=== PATIENT | male | born 1970 | race Hispanic/Latino ===

== ENCOUNTER → 2024-05-11 | Day surgery (SDC) | payer OTHER ==
[2024-05-10 10:15] LABS: BASOPHILS % 0.9 % (0.0-1.0); EOSINOPHILS # (AUTO) 0.2 (0.0-0.4); EOSINOPHILS % 5.4 % (0.0-6.0); HEMATOCRIT 37.7 % (38.2-49.6); HEMOGLOBIN 12.7 g/dL (14.0-18.0); LYMPHOCYTES # (AUTO) 1.1 (1.0-3.2); LYMPHOCYTES % 30.5 % (18.0-39.1); MEAN CORPUSCULAR HEMOGLOBIN 35.3 pg (28-32); MEAN CORPUSCULAR HGB CONC 33.7 g/dL (31-35); MEAN CORPUSCULAR VOLUME 104.7 fL (81-99); MONOCYTES # (AUTO) 0.3 (0.2-0.8); MONOCYTES % 9.1 % (4.4-11.3); NEUTROPHILS # (AUTO) 1.9 (2.1-6.9); NEUTROPHILS % 53.8 % (38.7-80.0); PLATELET COUNT 75 x10e3/uL (140-360); RED CELL DISTRIBUTION WIDTH 14.6 % (11.7-14.4); WHITE BLOOD COUNT 3.51 x10e3/uL (4.8-10.8)
[2024-05-10 10:37] LABS: ALBUMIN 2.4 g/dL (3.5-5.0); ALBUMIN/GLOBULIN RATIO 0.6 (0.8-2.0); ANION GAP 9.5 mmol/L (8-16); BILIRUBIN,TOTAL 5.5 mg/dL (0.2-1.2); CALCIUM 8.3 mg/dL (8.4-10.2); CREATININE, SERUM 0.61 mg/dL (0.72-1.25); POTASSIUM 4.5 mmol/L (3.5-5.1); TOTAL PROTEIN 6.5 g/dL (6.5-8.1)
[2024-05-10 11:12] LABS: INR 1.6; PROTHROMBIN TIME 19.8 seconds (11.9-14.5)
[~2024-05-11] MED LIST: FENTANYL CITRATE/PF 100MCG/2 ML INJ ONE; FOLIC ACID0.4 MG PO; FUROSEMIDE20 MG PO; LIDOCAINE HCL 2% LOCAL INJ 5 ML SDV VIAL INJ ONE; PROPOFOL IV EMULSION 10 MG/ML 20 ML VIAL ONE; PROPOFOL IV EMULSION 10 MG/ML 50 ML VIAL IV ONE; PROPRANOLOL HCL40 MG PO
[2024-05-11] MEDS: PHYTONADIONE 10MG/ML INJ 20 MG in Sodium Chloride 0.9% 50ML 50 ML IV ONE (12:15)
[2024-05-11] MEDS: LACTATED RINGER'S 1,000 ML ONE (12:16)
[2024-05-11 13:50] VITALS: BP 128/67; PULSE 66; RESP 14; O2SAT 97
== END | disposition home or self-care (01) ==
LOC: OR 11:09
PROVIDERS: ATTEND Internal Medicine Gastroenterology
DX: K70.31 Alcoholic cirrhosis of liver with ascites (principal); I85.10 Secondary esophageal varices without bleeding; D12.0 Benign neoplasm of cecum; K29.50 Unspecified chronic gastritis without bleeding; B96.81 Helicobacter pylori [H. pylori] as the cause of diseases classified elsewhere; K31.A15 Gastric intestinal metaplasia without dysplasia, involving multiple sites; K76.6 Portal hypertension; K31.89 Other diseases of stomach and duodenum; K58.9 Irritable bowel syndrome, unspecified; K64.8 Other hemorrhoids; Z71.3 Dietary counseling and surveillance; R74.8 Abnormal levels of other serum enzymes; F10.11 Alcohol abuse, in remission; I10 Essential (primary) hypertension; R06.02 Shortness of breath; Z01.810 Encounter for preprocedural cardiovascular examination; Z01.812 Encounter for preprocedural laboratory examination; Z68.34 Body mass index [BMI] 34.0-34.9, adult
CPT/HCPCS: 36415; 43239; 43244; 45385; 80053; 85025; 85610; 85730; 93005; J2001; J2470; J2704 ×2; J3010; J3430; J7121; 43255; 45378

== ENCOUNTER 2024-09-06 20:19 | Emergency (ER) | payer OTHER ==
[~2024-09-06] VITALS: Ht 177.8 cm; Wt 104.3 kg
[~2024-09-06 20:19] MED LIST changes: -FENTANYL CITRATE/PF 100MCG/2 ML INJ ONE; -LIDOCAINE HCL 2% LOCAL INJ 5 ML SDV VIAL INJ ONE; -PROPOFOL IV EMULSION 10 MG/ML 20 ML VIAL ONE; -PROPOFOL IV EMULSION 10 MG/ML 50 ML VIAL IV ONE
[2024-09-06 20:29] VITALS: PULSE 61; RESP 16; TEMP 98.5
[2024-09-06 22:23] VITALS: BP 122/71; PULSE 60; RESP 16; TEMP 97.8; O2SAT 100
== END 2024-09-06 22:25 | disposition home or self-care (01) ==
LOC: ER 20:26
DX: S00.83XA Contusion of other part of head, initial encounter (principal); S00.81XA Abrasion of other part of head, initial encounter; R51.9 Headache, unspecified; W01.0XXA Fall on same level from slipping, tripping and stumbling without subsequent striking against object, initial encounter; Y93.01 Activity, walking, marching and hiking; Y92.89 Other specified places as the place of occurrence of the external cause; Z79.01 Long term (current) use of anticoagulants
CPT/HCPCS: 70450; 72125; 99283

== ENCOUNTER 2024-09-12 20:41 | Emergency (ER) | payer OTHER ==
[~2024-09-12] VITALS: Ht 177.8 cm; Wt 94.8 kg
[2024-09-12] MEDS ORDERED: SODIUM CHLORIDE FLUSH 10 ML SYR IV PRN (21:00)
[2024-09-12 21:19] LABS: BASOPHILS # (AUTO) 0.1 (0.0-0.1); EOSINOPHILS # (AUTO) 0.2 (0.0-0.4); EOSINOPHILS % 2.9 % (0.0-6.0); HEMATOCRIT 35.1 % (38.2-49.6); LYMPHOCYTES # (AUTO) 1.2 (1.0-3.2); LYMPHOCYTES % 20.9 % (18.0-39.1); MEAN CORPUSCULAR HEMOGLOBIN 35.8 pg (28-32); MEAN CORPUSCULAR HGB CONC 34.2 g/dL (31-35); MEAN CORPUSCULAR VOLUME 104.8 fL (81-99); MONOCYTES # (AUTO) 0.6 (0.2-0.8); MONOCYTES % 9.4 % (4.4-11.3); NEUTROPHILS # (AUTO) 3.8 (2.1-6.9); NEUTROPHILS % 64.6 % (38.7-80.0); PLATELET COUNT 114 x10e3/uL (140-360); RED BLOOD COUNT 3.35 x10e6/uL (4.3-5.7); RED CELL DISTRIBUTION WIDTH 12.9 % (11.7-14.4); WHITE BLOOD COUNT 5.83 x10e3/uL (4.8-10.8)
[2024-09-12 21:29] LABS: ALBUMIN 2.6 g/dL (3.5-5.0); ALBUMIN/GLOBULIN RATIO 0.6 (0.8-2.0); ANION GAP 13.6 mmol/L (8-16); BILIRUBIN,TOTAL 5.1 mg/dL (0.2-1.2); CALCIUM 8.5 mg/dL (8.4-10.2); CREATININE, SERUM 1.01 mg/dL (0.72-1.25); POTASSIUM 4.6 mmol/L (3.5-5.1); TOTAL PROTEIN 7.1 g/dL (6.5-8.1)
[2024-09-12 21:32] LABS: INR 1.45; PROTHROMBIN TIME 18.4 seconds (11.9-14.5)
[2024-09-12 21:33] LABS: PARTIAL THROMBOPLASTIN TIME 44.5 seconds (23.8-35.5)
[2024-09-12 21:35] LABS: TROPONIN I 0.004 ng/mL (0-0.300)
[2024-09-12] MEDS ORDERED: LACTULOSE20 GM/30 M PO (22:40)
[2024-09-12 23:00] VITALS: PULSE 57; RESP 16; TEMP 98.3; O2SAT 100
== END 2024-09-12 23:04 | disposition home or self-care (01) ==
LOC: ER 20:53
DX: R53.1 Weakness (principal); K74.60 Unspecified cirrhosis of liver; E72.20 Disorder of urea cycle metabolism, unspecified; R11.2 Nausea with vomiting, unspecified; R73.9 Hyperglycemia, unspecified; R53.83 Other fatigue; K21.9 Gastro-esophageal reflux disease without esophagitis; R94.31 Abnormal electrocardiogram [ECG] [EKG]
CPT/HCPCS: 36415; 71046; 80053; 82140; 83880; 84484; 85025; 85610; 85730; 93005; 94760; 99284

== ENCOUNTER 2025-03-31 19:35 | Emergency (ER) | payer OTHER ==
[~2025-03-31] VITALS: Ht 177.8 cm; Wt 102.1 kg
[~2025-03-31 19:35] MED LIST changes: +LACTULOSE20 GM/30 M PO
[2025-03-31 20:57] LABS: BASOPHILS % 1.3 % (0.0-1.0); EOSINOPHILS % 6.1 % (0.0-6.0); LYMPHOCYTES % 24.9 % (18.0-39.1); MONOCYTES % 11.4 % (4.4-11.3); NEUTROPHILS % 55.9 % (38.7-80.0); RED CELL DISTRIBUTION WIDTH 13.3 % (11.7-14.4)
[2025-03-31 21:19] LABS: EST GLOMERULAR FILTRATION RATE 77.0 ML/MIN (>=60)
[2025-03-31] MEDS ORDERED: RIFAMPIN300 MG PO (22:09)
[2025-03-31 22:10] VITALS: PULSE 70; RESP 18; TEMP 98.3; O2SAT 98
== END 2025-03-31 22:24 | disposition home or self-care (01) ==
LOC: ER 19:53
DX: L29.81 Cholestatic pruritus (principal); E87.1 Hypo-osmolality and hyponatremia; E72.20 Disorder of urea cycle metabolism, unspecified; E80.7 Disorder of bilirubin metabolism, unspecified; K21.9 Gastro-esophageal reflux disease without esophagitis; K76.9 Liver disease, unspecified
CPT/HCPCS: 36415; 80053; 82140; 85025; 99284